=== PATIENT | male | born 1975 | race Two or more races ===

== ENCOUNTER 2022-10-23 01:41 | Emergency (ER) | payer OTHER ==
[~2022-10-23] VITALS: Ht 182.9 cm; Wt 70.3 kg
[2022-10-23] MEDS ORDERED: KETO10TA2 PO ×2 (03:59→18:33)
== END 2022-10-23 04:08 ==
LOC: ER 01:41
DX: S82.142A Displaced bicondylar fracture of left tibia, initial encounter for closed fracture (principal); S09.8XXA Other specified injuries of head, initial encounter; W05.2XXA Fall from non-moving motorized mobility scooter, initial encounter; Y93.I9 Activity, other involving external motion; Y92.413 State road as the place of occurrence of the external cause; Z88.2 Allergy status to sulfonamides

== ENCOUNTER → 2022-10-23 | Emergency (ER) | payer OTHER ==
[~2022-10-23] VITALS: Ht 190.5 cm; Wt 86.2 kg
[~2022-10-23] MED LIST: KETO10TA2 PO
== END | disposition home or self-care (01) ==
LOC: ER 18:17
DX: S82.142A Displaced bicondylar fracture of left tibia, initial encounter for closed fracture (principal); Z88.0 Allergy status to penicillin